=== PATIENT | female | born 1970 | race African-American/Black ===

== ENCOUNTER 2017-10-24 05:01 | Emergency (ER) | payer SELFPAY ==
[~2017-10-24] VITALS: Ht 165.1 cm; Wt 116.3 kg
[2017-10-24 06:42] LABS: ALANINE AMINOTRANSFERASE 67 U/L (12-78); ALBUMIN 3.2 g/dL (3.4-5.0); ANION GAP 10 mmol/L (5-15); CALCIUM 8.7 mg/dL (8.5-10.1); CHLORIDE 111 mmol/L (98-107); CREATININE 1.18 mg/dL (0.55-1.02)
[2017-10-24 06:46] LABS: ALKALINE PHOSPHATASE 94 U/L (45-117); BILIRUBIN,TOTAL 0.7 mg/dL (0.2-1.0); TOTAL PROTEIN 6.6 g/dL (6.4-8.2)
[2017-10-24 06:50] LABS: MD YES; MEAN CORPUSCULAR HEMOGLOBIN 18.7 pg (27.0-34.8); MEAN CORPUSCULAR VOLUME 63.3 fL (80-100); MEAN PLATELET VOLUME 9.8 fL (7.4-10.4); PLATELET COUNT 454 x10^3/uL (130-400); RED BLOOD COUNT 5.58 x10^6/uL (3.82-5.3); RED CELL DISTRIBUTION WIDTH 30.2 % (9.6-15.2)
[2017-10-24 06:54] LABS: MICROSCOPIC INDICATED
[2017-10-24 06:55] LABS: EOS#(MANUAL) 0.21 x10^3/uL (0.0-0.4); EOS% (MANUAL) 3 % (1-7); LYMPH#(MANUAL) 2.28 x10^3/uL (1-3.4); LYMPHS% (MANUAL) 33 % (22-44); MEAN CORPUSCULAR HGB CONC 29.6 g/dL (32.4-35.8); MONOS#(MANUAL) 0.28 x10^3/uL (0.3-2.7); MONOS% (MANUAL) 4 % (2-9); NRBC % (MANUAL) 1 % (0-1); SEG#(MANUAL) 4.14 x10^3/uL (1.8-6.8); SEGS% (MANUAL) 60 % (42-75)
[2017-10-24 06:57] LABS: ANISOCYTOSIS 2+; HYPOCHROMIA 2+; MICROCYTOSIS 2+; POLYCHROMASIA 1+
[2017-10-24 06:58] LABS: <PLATELET ESTIMATE> INCREASED; LARGE PLATELETS 1+; TARGET CELLS 1+
[2017-10-24 07:08] LABS: CULTURE INDICATED? YES
[2017-10-24 07:41] VITALS: BP 158/77
[2017-10-25] MEDS ORDERED: RANI150T23 PO (05:19)
== END 2017-10-24 09:43 ==
LOC: ED 06:25
DX: J45.909 Unspecified asthma, uncomplicated (principal); R06.02 Shortness of breath; N30.00 Acute cystitis without hematuria
CPT/HCPCS: 36415; 71046; 80053; 81001; 83690; 84703; 85025; 87086; 93005; 99285

== ENCOUNTER 2018-04-06 06:54 | Emergency (ER) | payer SELFPAY ==
[~2018-04-06] VITALS: Ht 165.1 cm; Wt 108.0 kg
[~2018-04-06 06:54] MED LIST: ASPI81TA45 PO; ATOR40TA78 PO; CARV6.2512 PO; FURO20TA3 PO; LISI5TAB7 PO; POTA20TA6 PO; RANI150T23 PO
[2018-04-06 07:05] VITALS: BP 149/100
[2018-04-06] MEDS ORDERED: KETOROLAC 30 MG/1 ML ONE (07:29)
[2018-04-06] MEDS ORDERED: KETOROLAC 30 MG/1 ML IM ONE (07:30)
--- NOTE | 2018-04-06 07:35 | NUR ---
Pt medicated as per emar for 8/10 ear pain.
--- NOTE | 2018-04-06 07:52 | NUR ---
Pt provided w/ rx assistance info. Patient given discharge instructions and they have confirmed that they understand the instructions. Patient ambulatory with steady gait.
== END 2018-04-06 07:53 | disposition home or self-care (01) ==
LOC: ED 07:25
DX: H60.502 Unspecified acute noninfective otitis externa, left ear (principal); I25.2 Old myocardial infarction; I11.0 Hypertensive heart disease with heart failure; I50.9 Heart failure, unspecified; F41.1 Generalized anxiety disorder; F31.9 Bipolar disorder, unspecified; J45.909 Unspecified asthma, uncomplicated; M06.9 Rheumatoid arthritis, unspecified; E11.9 Type 2 diabetes mellitus without complications
CPT/HCPCS: 96372; 99283; J1885

== ENCOUNTER 2018-04-18 16:53 | Emergency (ER) | payer SELFPAY ==
[~2018-04-18] VITALS: Ht 165.1 cm; Wt 105.0 kg
--- NOTE | 2018-04-18 17:22 | NUR ---
PT HER FOR SOB WITH ANXIETY EXPERINCED AT WORK. PT ON ARRIVAL VSS AND NADN. PT IS TEARFUL BUT EASILY CONSOLED. PT RESTING IN BED AND PO ATIVAN GIVEN.
[2018-04-18 18:47] VITALS: BP 114/77
== END 2018-04-18 18:49 | disposition home or self-care (01) ==
LOC: ED 17:27
DX: R07.2 Precordial pain (principal); I25.2 Old myocardial infarction; I50.9 Heart failure, unspecified; I11.0 Hypertensive heart disease with heart failure; E11.9 Type 2 diabetes mellitus without complications; M06.9 Rheumatoid arthritis, unspecified; Z88.0 Allergy status to penicillin
CPT/HCPCS: 71045; 93005; 99283

== ENCOUNTER 2018-08-24 05:46 | Emergency (ER) | payer SELFPAY ==
[~2018-08-24] VITALS: Ht 165.1 cm; Wt 110.0 kg
[2018-08-24] MEDS ORDERED: ADENOSINE 6 MG/2 ML ONE (05:49)
[2018-08-24] MEDS ORDERED: ADENOSINE 6 MG/2 ML IVPush ONE (06:00)
[2018-08-24] MEDS ORDERED: SODIUM CHLORIDE FLUSH 10ML SYR IVF ONE (06:00)
--- NOTE | 2018-08-24 06:00 | NUR ---
PT BIB [facility] WITH C/O SVT, PT PLACD ON ALL MONITORS AND CARDIO VERTED WITH ADENOSINE 6 MG IVP, PT CONVERTED MD HARRIS AT BEDSIDE
--- NOTE | 2018-08-24 06:17 | NUR ---
pt resting comfortably in nad states feels much better
--- NOTE | 2018-08-24 06:24 | NUR ---
at bs pt in nad
[2018-08-24 06:28] LABS: ANION GAP 10 mmol/L (5-15); CALCIUM 9.8 mg/dL (8.5-10.1); CHLORIDE 110 mmol/L (98-107)
[2018-08-24 06:32] LABS: ALANINE AMINOTRANSFERASE 64 U/L (12-78); ALKALINE PHOSPHATASE 99 U/L (45-117); BILIRUBIN,TOTAL 0.9 mg/dL (0.2-1.0); CREATININE 1.74 mg/dL (0.55-1.02); TOTAL PROTEIN 8.8 g/dL (6.4-8.2)
[2018-08-24 07:15] LABS: MEAN CORPUSCULAR HEMOGLOBIN 19.8 pg (27.0-34.8); MEAN CORPUSCULAR VOLUME 66.6 fL (80-100); MEAN PLATELET VOLUME 10.5 fL (7.4-10.4); PLATELET COUNT 325 x10^3/uL (130-400); RED BLOOD COUNT 7.12 x10^6/uL (3.82-5.3); RED CELL DISTRIBUTION WIDTH 23.6 % (9.6-15.2)
[2018-08-24 07:19] LABS: MD YES; MEAN CORPUSCULAR HGB CONC 29.8 g/dL (32.4-35.8)
[2018-08-24 07:21] LABS: EOS#(MANUAL) 0.21 x10^3/uL (0.0-0.4); EOS% (MANUAL) 3 % (1-7); LYMPH#(MANUAL) 2.49 x10^3/uL (1-3.4); LYMPHS% (MANUAL) 35 % (22-44); MONOS#(MANUAL) 0.43 x10^3/uL (0.3-2.7); MONOS% (MANUAL) 6 % (2-9); SEG#(MANUAL) 3.98 x10^3/uL (1.8-6.8); SEGS% (MANUAL) 56 % (42-75)
[2018-08-24 07:22] LABS: ANISOCYTOSIS 2+; HYPOCHROMIA 2+; MICROCYTOSIS 2+; POLYCHROMASIA 1+; TARGET CELLS 1+
[2018-08-24 07:23] LABS: <PLATELET ESTIMATE> ADEQUATE; LARGE PLATELETS 1+
[2018-08-24 07:32] VITALS: BP 103/71
== END 2018-08-24 09:03 | disposition home or self-care (01) ==
LOC: ED 08:45
DX: I47.1 Supraventricular tachycardia (principal); I10 Essential (primary) hypertension; Z87.891 Personal history of nicotine dependence
CPT/HCPCS: 36415; 71045; 80053; 85025; 93005; 96374; 99291; J0153

== ENCOUNTER 2018-12-14 01:21 | Inpatient (IN) | payer MEDICAID ==
[~2018-12-14] VITALS: Ht 165.1 cm; Wt 116.9 kg
[2018-12-14] VITALS (7 sets, daily range): BP systolic 87–116; BP diastolic 61–91
[~2018-12-14 01:21] MED LIST changes: +RANI-467 PO; -RANI150T23 PO
[2018-12-14] MEDS ORDERED: ASPIRIN 81 MG TABLET CHEW PO ONE (01:30)
[2018-12-14] MEDS ORDERED: SODIUM CHLORIDE 0.9% 1,000ML IVBOLUS ONE ×2 (01:30)
[2018-12-14] MEDS ORDERED: SODIUM CHLORIDE FLUSH 10ML SYR IVF ONE (01:30)
--- NOTE | 2018-12-14 01:39 | NUR ---
pt bib [facility] with c/o syncopal episode lasting less than a min s/p smoking marajuana, pt a and o x 4 in nadc/o being hot, pt cool and clammy, pt states that she is going through menopause
[2018-12-14] MEDS ORDERED: ASPIRIN 81 MG TABLET CHEW ONE (01:48)
[2018-12-14 02:06] LABS: ALANINE AMINOTRANSFERASE 56 U/L (12-78); ALBUMIN 3.2 g/dL (3.4-5.0); ANION GAP 8 mmol/L (5-15); CHLORIDE 110 mmol/L (98-107); CREATININE 1.87 mg/dL (0.55-1.02)
[2018-12-14 02:10] LABS: ALKALINE PHOSPHATASE 120 U/L (45-117); BILIRUBIN,TOTAL 0.6 mg/dL (0.2-1.0); TOTAL PROTEIN 7.1 g/dL (6.4-8.2); TROPONIN I < 0.015 ng/mL (0.000-0.045)
--- NOTE | 2018-12-14 02:23 | NUR ---
ptresting in nasd at this time
[2018-12-14 02:25] LABS: MEAN CORPUSCULAR HEMOGLOBIN 21.5 pg (27.0-34.8); MEAN CORPUSCULAR HGB CONC 30.2 g/dL (32.4-35.8); MEAN CORPUSCULAR VOLUME 71.3 fL (80-100); MEAN PLATELET VOLUME 11.9 fL (7.4-10.4); PLATELET COUNT 220 x10^3/uL (130-400); RED BLOOD COUNT 6.36 x10^6/uL (3.82-5.3); RED CELL DISTRIBUTION WIDTH 22.1 % (9.6-15.2)
[2018-12-14 02:26] LABS: BASOS#(MANUAL) 0.11 x10^3/uL (0-0.1); BASOS% (MANUAL) 1 % (0-1); EOS#(MANUAL) 0.11 x10^3/uL (0.0-0.4); EOS% (MANUAL) 1 % (1-7); LYMPH#(MANUAL) 3.68 x10^3/uL (1-3.4); LYMPHS% (MANUAL) 35 % (22-44); MD YES; MONOS#(MANUAL) 0.21 x10^3/uL (0.3-2.7); MONOS% (MANUAL) 2 % (2-9); NRBC % (MANUAL) 2 % (0-1); REACTIVE LYMPHS # (MANUAL) 0.21 x10^3/uL (0-0); REACTIVE LYMPHS % (MANUAL) 2 % (0-0); SEGS% (MANUAL) 59 % (42-75)
[2018-12-14 02:27] LABS: <PLATELET ESTIMATE> ADEQUATE
[2018-12-14 02:28] LABS: HYPOCHROMIA 1+; POLYCHROMASIA 1+; TARGET CELLS 1+
[2018-12-14 02:29] LABS: ANISOCYTOSIS 1+; LARGE PLATELETS 1+; MICROCYTOSIS 2+
[2018-12-14 02:30] LABS: OVALOCYTES 1+
[2018-12-14] MEDS ORDERED: FUROSEMIDE 40 MG/4 ML ONE (03:06)
[2018-12-14] MEDS ORDERED: CARV3.12 PO (03:23)
[2018-12-14] MEDS ORDERED: LISI-424 PO (03:24)
[2018-12-14] MEDS ORDERED: RISP1SOL5 PO (03:25)
[2018-12-14] MEDS ORDERED: FURO-93 PO (03:26)
[2018-12-14] MEDS ORDERED: POTA99TA24 PO (03:26)
[2018-12-14] MEDS ORDERED: ASPI-496 PO (03:27)
--- NOTE | 2018-12-14 03:28 | NUR ---
awaiting admit bed
[2018-12-14] MEDS ORDERED: FUROSEMIDE 40 MG/4 ML IV ONE (03:30)
[2018-12-14] MEDS ORDERED: SODIUM CHLORIDE FLUSH 10ML SYR IVF PRN (03:30)
--- NOTE | 2018-12-14 03:34 | NUR ---
report to demetrice pt to room with tech
[2018-12-14] MEDS ORDERED: ATOR20TA86 PO (04:04)
[2018-12-14 07:25] LABS: AMPHETAMINE SCREEN, URINE Positive (Negative); BARBITURATE SCREEN, URINE Negative (Negative); BENZODIAZEPINE SCREEN, URINE Negative (Negative); CANNABINOID SCREEN, URINE Negative (Negative); COCAINE SCREEN, URINE Negative (Negative); METHADONE SCREEN, URINE Negative (Negative); OPIATE SCREEN, URINE Negative (Negative)
[2018-12-14] MEDS ORDERED: FUROSEMIDE 20 MG/2 ML IV ONE (08:00)
[2018-12-14] MEDS ORDERED: ONDANSETRON 2MG/ML, 2ML IVPush PRN (08:30)
[2018-12-14] MEDS ORDERED: PROMETHAZINE 25 MG/ML, 1ML IM PRN (08:30)
[2018-12-14] MEDS ORDERED: LABETALOL 5MG/ML, 20ML IVPush PRN (08:30)
[2018-12-14] MEDS ORDERED: ALBUTEROL SULFATE 2.5 MG/3 ML ONE (09:00)
[2018-12-14] MEDS ORDERED: POTASSIUM CHLORIDE 20 MEQ TAB.ER.PRT PO ONE (09:00)
[2018-12-14 09:16] LABS: CHOL/HDL RATIO 2.8; LDL/HDL RATIO 1.2 (0.5-3.0)
[2018-12-14] MEDS: ATORVASTATIN 20 MG TABLET PO SCH ×2 (09:41→21:06)
[2018-12-14] MEDS: CARVEDILOL 3.125 MG TABLET PO SCH (09:42)
[2018-12-14] MEDS: LISINOPRIL 5 MG TABLET PO SCH (09:44)
[2018-12-14] MEDS: ASPIRIN 81 MG TABLET EC PO SCH (09:46)
[2018-12-14] MEDS: PANTOPROZOLE 40MG TABLET PO SCH (09:53)
[2018-12-14] MEDS: ALBUTEROL SULFATE 2.5 MG/3 ML NPPB SCH ×3 (10:09→20:00)
[2018-12-14] MEDS ORDERED: ALBUTEROL SULFATE 2.5 MG/3 ML NPPB PRN (10:30)
[2018-12-14] MEDS: INSULIN LISPRO 100 UNITS/ML, PEN SQ-INSULIN SCH ×3 (11:42→21:00)
[2018-12-14] MEDS: HEPARIN 5,000 UNITS/ML, 1ML SQ SCH ×2 (12:17→19:52)
[2018-12-14 13:18] LABS: HEMOGLOBIN A1C 6.6 % (4.2-6.3)
[2018-12-14] MEDS ORDERED: FUROSEMIDE 20 MG TABLET PO SCH (17:00)
[2018-12-15] VITALS (10 sets, daily range): BP systolic 0–122; BP diastolic 0–91
[2018-12-15] MEDS: HEPARIN 5,000 UNITS/ML, 1ML SQ SCH ×3 (04:44→20:55)
[2018-12-15 05:56] LABS: ANION GAP 6 mmol/L (5-15); CALCIUM 8.7 mg/dL (8.5-10.1); CHLORIDE 104 mmol/L (98-107)
[2018-12-15 05:58] LABS: CREATININE 1.54 mg/dL (0.55-1.02)
[2018-12-15 06:16] LABS: BASOPHILS # (AUTO) 0.01 x10^3/uL (0-0.1); BASOPHILS % (AUTO) 0 % (0-1); EOSINOPHILS # (AUTO) 0.18 x10^3/uL (0-0.4); EOSINOPHILS % (AUTO) 2 % (1-7); LYMPHOCYTES # (AUTO) 2.59 x10^3/uL (1-3.4); LYMPHOCYTES % (AUTO) 33 % (22-44); MD MORPH REVIEW ONLY; MEAN CORPUSCULAR HEMOGLOBIN 21.7 pg (27.0-34.8); MEAN CORPUSCULAR HGB CONC 30.2 g/dL (32.4-35.8); MEAN CORPUSCULAR VOLUME 72.1 fL (80-100); MEAN PLATELET VOLUME 12.4 fL (7.4-10.4); MONOCYTES # (AUTO) 0.56 x10^3/uL (0.2-0.8); MONOCYTES % (AUTO) 7 % (2-9); NEUTROPHILS # (AUTO) 4.43 x10^3/uL (1.8-6.8); NEUTROPHILS % (AUTO) 57 % (42-75); PLATELET COUNT 219 x10^3/uL (130-400); RED BLOOD COUNT 6.24 x10^6/uL (3.82-5.3); RED CELL DISTRIBUTION WIDTH 21.7 % (9.6-15.2)
[2018-12-15 06:17] LABS: ANISOCYTOSIS 1+; HYPOCHROMIA 1+; MICROCYTOSIS 1+
[2018-12-15 06:18] LABS: TARGET CELLS 1+
[2018-12-15 06:19] LABS: <PLATELET ESTIMATE> ADEQUATE; GIANT PLATELETS 1+; LARGE PLATELETS 1+
[2018-12-15 06:20] LABS: POLYCHROMASIA 1+
[2018-12-15] MEDS: INSULIN LISPRO 100 UNITS/ML, PEN SQ-INSULIN SCH ×4 (07:00→21:00)
[2018-12-15] MEDS: ALBUTEROL SULFATE 2.5 MG/3 ML NPPB SCH ×4 (07:06→19:36)
[2018-12-15] MEDS: ASPIRIN 81 MG TABLET EC PO SCH (07:59)
[2018-12-15] MEDS: PANTOPROZOLE 40MG TABLET PO SCH (07:59)
[2018-12-15] MEDS: LISINOPRIL 5 MG TABLET PO SCH ×2 (08:13→09:00)
[2018-12-15] MEDS: CARVEDILOL 3.125 MG TABLET PO SCH (08:13)
[2018-12-15] MEDS ORDERED: CARVEDILOL 3.125 MG TABLET PO SCH (09:00)
[2018-12-15] MEDS: LACTOBACILLUS CHEW TABLET PO SCH ×3 (09:34→20:55)
[2018-12-15] MEDS: ATORVASTATIN 20 MG TABLET PO SCH ×2 (09:34→20:55)
[2018-12-15] MEDS: FERROUS SULFATE 325 MG TABLET PO SCH (09:34)
[2018-12-16] VITALS (8 sets, daily range): BP systolic 95–140; BP diastolic 66–108
[2018-12-16] MEDS: HEPARIN 5,000 UNITS/ML, 1ML SQ SCH ×3 (04:29→20:26)
[2018-12-16] MEDS: ALBUTEROL SULFATE 2.5 MG/3 ML NPPB SCH ×4 (06:30→20:00)
[2018-12-16] MEDS: INSULIN LISPRO 100 UNITS/ML, PEN SQ-INSULIN SCH ×4 (07:00→19:45)
[2018-12-16] MEDS: LISINOPRIL 5 MG TABLET PO SCH (09:00)
[2018-12-16] MEDS: PANTOPROZOLE 40MG TABLET PO SCH (09:28)
[2018-12-16] MEDS: LACTOBACILLUS CHEW TABLET PO SCH ×3 (09:29→20:25)
[2018-12-16] MEDS: ATORVASTATIN 20 MG TABLET PO SCH ×2 (09:31→20:25)
[2018-12-16] MEDS: ASPIRIN 81 MG TABLET EC PO SCH (09:33)
[2018-12-16] MEDS ORDERED: CARVEDILOL 3.125 MG TABLET PO SCH (21:00)
[2018-12-17 00:32] VITALS: BP 114/78
[2018-12-17] MEDS ORDERED: RISP-2 PO (02:35)
[2018-12-17] MEDS: HEPARIN 5,000 UNITS/ML, 1ML SQ SCH ×2 (04:21→12:14)
[2018-12-17] MEDS: ALBUTEROL SULFATE 2.5 MG/3 ML NPPB SCH (06:27)
[2018-12-17 06:42] VITALS: BP 88/50
[2018-12-17] MEDS: LISINOPRIL 5 MG TABLET PO SCH (09:00)
[2018-12-17 09:07] VITALS: BP 133/86
[2018-12-17] MEDS: INSULIN LISPRO 100 UNITS/ML, PEN SQ-INSULIN SCH ×2 (09:07→11:24)
[2018-12-17 09:08] VITALS: BP 136/88
[2018-12-17 09:09] VITALS: BP 126/86
[2018-12-17] MEDS: LACTOBACILLUS CHEW TABLET PO SCH (09:16)
[2018-12-17] MEDS: PANTOPROZOLE 40MG TABLET PO SCH (09:16)
[2018-12-17] MEDS: ATORVASTATIN 20 MG TABLET PO SCH (09:16)
[2018-12-17] MEDS: ASPIRIN 81 MG TABLET EC PO SCH (09:17)
[2018-12-17] MEDS: FERROUS SULFATE 325 MG TABLET PO SCH (09:17)
[2018-12-17 12:09] VITALS: BP 122/69
[2018-12-17] MEDS ORDERED: ACID1TAB7 PO (15:05)
[2018-12-17] MEDS ORDERED: FERR-51 PO (15:05)
[2018-12-17] MEDS ORDERED: METO25TA91 PO (15:05)
[2018-12-17] MEDS ORDERED: INSU100I11 SQ-INSULIN (15:05)
[2018-12-17] MEDS ORDERED: LISI5TAB7 PO (15:05)
[2018-12-17] MEDS ORDERED: PANT40TA5 PO (15:05)
[2018-12-17] MEDS ORDERED: METOPROLOL SUCCINATE 25 MG TAB.ER.24H PO SCH (21:00)
[2018-12-17] MEDS ORDERED: RISPERIDONE 1 MG TAB.RAPDIS PO SCH (21:00)
== END 2018-12-17 17:05 | DRG 291 ==
LOC: ED 03:05 → EDIP 03:11 → 5SO 03:54 → 4WST 14:59
PROVIDERS: ADMIT Family Medicine; ATTEND Internal Medicine
DX: I13.0 Hypertensive heart and chronic kidney disease with heart failure and stage 1 through stage 4 chronic kidney disease, or unspecified chronic kidney disease (principal); I50.43 Acute on chronic combined systolic (congestive) and diastolic (congestive) heart failure; J96.01 Acute respiratory failure with hypoxia; Z68.41 Body mass index [BMI] 40.0-44.9, adult; N17.9 Acute kidney failure, unspecified; D50.9 Iron deficiency anemia, unspecified; I42.8 Other cardiomyopathies; E11.22 Type 2 diabetes mellitus with diabetic chronic kidney disease; E66.01 Morbid (severe) obesity due to excess calories; F12.10 Cannabis abuse, uncomplicated; F31.9 Bipolar disorder, unspecified; G47.00 Insomnia, unspecified; G47.33 Obstructive sleep apnea (adult) (pediatric); G56.00 Carpal tunnel syndrome, unspecified upper limb; H53.2 Diplopia; I25.10 Atherosclerotic heart disease of native coronary artery without angina pectoris; J45.909 Unspecified asthma, uncomplicated; M06.9 Rheumatoid arthritis, unspecified; M50.30 Other cervical disc degeneration, unspecified cervical region; M79.7 Fibromyalgia; N18.3 Chronic kidney disease, stage 3 (moderate); W18.30XA Fall on same level, unspecified, initial encounter; F14.10 Cocaine abuse, uncomplicated; M19.90 Unspecified osteoarthritis, unspecified site; I95.9 Hypotension, unspecified; R55 Syncope and collapse; F19.10 Other psychoactive substance abuse, uncomplicated; I25.2 Old myocardial infarction; Z80.1 Family history of malignant neoplasm of trachea, bronchus and lung; Z86.73 Personal history of transient ischemic attack (TIA), and cerebral infarction without residual deficits; Z88.0 Allergy status to penicillin
CPT/HCPCS: 36415; 96374; 99285; J7613; 70450; 71045; 80048; 80053; 80061; 80307; 82728; 82962; 83036; 83540; 83550; 83735; 83880; 84100; 84443; 84466; 84484; 85025; 93005; 93306; 94640; G0378; J1644; J1940; J7030

== ENCOUNTER 2019-01-06 20:26 | Emergency (ER) | payer MEDICAID ==
[~2019-01-06] VITALS: Ht 165.1 cm; Wt 118.5 kg
[~2019-01-06 20:26] MED LIST changes: +ACID1TAB7 PO; +ASPI-496 PO; +ATOR20TA86 PO; +CARV3.12 PO; +FERR-51 PO; +FURO-93 PO; +INSU100I11 SQ-INSULIN; +LISI-424 PO; +METO25TA91 PO; +PANT40TA5 PO; +POTA99TA24 PO; +RISP-2 PO; +RISP1SOL5 PO
[2019-01-06 20:28] VITALS: BP 130/62
[2019-01-06 20:56] LABS: CULTURE INDICATED? YES; MICROSCOPIC INDICATED
--- NOTE | 2019-01-06 21:07 | NUR ---
PT PLACED IN ROOM AND AND AWAITING ERP AND ORDERS.
[2019-01-06] MEDS ORDERED: ONDANSETRON 2MG/ML, 2ML IVPush ONE (21:30)
[2019-01-06 21:48] LABS: ALANINE AMINOTRANSFERASE 31 U/L (12-78); ALBUMIN 3.4 g/dL (3.4-5.0); ANION GAP 5 mmol/L (5-15); CHLORIDE 111 mmol/L (98-107); CREATININE 1.35 mg/dL (0.55-1.02)
[2019-01-06 21:50] LABS: MEAN CORPUSCULAR HEMOGLOBIN 22.5 pg (27.0-34.8); MEAN CORPUSCULAR HGB CONC 30.8 g/dL (32.4-35.8); MEAN CORPUSCULAR VOLUME 73.2 fL (80-100); MEAN PLATELET VOLUME 11.9 fL (7.4-10.4); PLATELET COUNT 220 x10^3/uL (130-400); RED CELL DISTRIBUTION WIDTH 20.5 % (9.6-15.2)
[2019-01-06 21:51] LABS: ALKALINE PHOSPHATASE 102 U/L (45-117); BILIRUBIN,TOTAL 0.4 mg/dL (0.2-1.0); TOTAL PROTEIN 7.3 g/dL (6.4-8.2)
[2019-01-06 22:08] LABS: MD YES
[2019-01-06 22:13] LABS: BASOS#(MANUAL) 0.08 x10^3/uL (0-0.1); BASOS% (MANUAL) 1 % (0-1); EOS% (MANUAL) 4 % (1-7); LYMPH#(MANUAL) 2.43 x10^3/uL (1-3.4); LYMPHS% (MANUAL) 32 % (22-44); MONOS#(MANUAL) 0.61 x10^3/uL (0.3-2.7); MONOS% (MANUAL) 8 % (2-9); REACTIVE LYMPHS # (MANUAL) 0.15 x10^3/uL (0-0); REACTIVE LYMPHS % (MANUAL) 2 % (0-0); SEG#(MANUAL) 4.03 x10^3/uL (1.8-6.8); SEGS% (MANUAL) 53 % (42-75)
[2019-01-06 22:14] LABS: <PLATELET ESTIMATE> ADEQUATE; ANISOCYTOSIS 1+; HYPOCHROMIA 1+; MICROCYTOSIS 1+; OVALOCYTES 1+; POLYCHROMASIA 1+; TARGET CELLS 1+
[2019-01-06 22:15] LABS: GIANT PLATELETS 1+; LARGE PLATELETS 1+
[2019-01-06] MEDS ORDERED: METHOCARBAMOL 750 MG TABLET ONE (22:29)
[2019-01-06] MEDS ORDERED: OXYcodone/APAP 5/325MG TABLET ONE (22:29)
--- NOTE | 2019-01-06 22:36 | NUR ---
PT MEDICATED ORDERED BY ERP. PT UP FOR RECHECK
[2019-01-06] MEDS: MORPHINE SULFATE 4 MG/ML, 1ML IVPush PRN (22:58)
[2019-01-06] MEDS ORDERED: METHOCARBAMOL 750 MG TABLET PO ONE (23:30)
[2019-01-06] MEDS ORDERED: OXYcodone/APAP 5/325MG TABLET PO ONE (23:30)
== END 2019-01-06 23:15 | disposition home or self-care (01) ==
LOC: ED 22:08
DX: S39.012A Strain of muscle, fascia and tendon of lower back, initial encounter (principal); I25.2 Old myocardial infarction; I50.9 Heart failure, unspecified; I13.0 Hypertensive heart and chronic kidney disease with heart failure and stage 1 through stage 4 chronic kidney disease, or unspecified chronic kidney disease; E11.22 Type 2 diabetes mellitus with diabetic chronic kidney disease; N18.9 Chronic kidney disease, unspecified; J45.909 Unspecified asthma, uncomplicated; Z87.891 Personal history of nicotine dependence; Z72.89 Other problems related to lifestyle; Z86.73 Personal history of transient ischemic attack (TIA), and cerebral infarction without residual deficits
CPT/HCPCS: 36415; 74176; 80053; 81001; 83690; 85025; 87086; 99284

== ENCOUNTER 2019-03-08 16:20 | Emergency (ER) | payer MEDICAID ==
[~2019-03-08] VITALS: Ht 167.6 cm; Wt 116.0 kg
[2019-03-08 17:21] LABS: ALANINE AMINOTRANSFERASE 18 U/L (12-78); ALBUMIN 3.3 g/dL (3.4-5.0); ANION GAP 7 mmol/L (5-15); CALCIUM 8.8 mg/dL (8.5-10.1); CHLORIDE 110 mmol/L (98-107); CREATININE 1.71 mg/dL (0.55-1.02)
[2019-03-08 17:22] LABS: MEAN CORPUSCULAR HEMOGLOBIN 22.5 pg (27.0-34.8); MEAN CORPUSCULAR HGB CONC 30.6 g/dL (32.4-35.8); MEAN CORPUSCULAR VOLUME 73.7 fL (80-100); MEAN PLATELET VOLUME 10.9 fL (7.4-10.4); PLATELET COUNT 241 x10^3/uL (130-400); RED CELL DISTRIBUTION WIDTH 17.9 % (9.6-15.2)
[2019-03-08 17:26] LABS: ALKALINE PHOSPHATASE 84 U/L (45-117); BILIRUBIN,TOTAL 0.6 mg/dL (0.2-1.0); TOTAL PROTEIN 7.1 g/dL (6.4-8.2); TROPONIN I < 0.015 ng/mL (0.000-0.045)
[2019-03-08 18:07] LABS: MD YES
[2019-03-08 18:10] LABS: BASOS#(MANUAL) 0.07 x10^3/uL (0-0.1); BASOS% (MANUAL) 1 % (0-1); EOS#(MANUAL) 0.14 x10^3/uL (0.0-0.4); EOS% (MANUAL) 2 % (1-7); LYMPH#(MANUAL) 2.72 x10^3/uL (1-3.4); LYMPHS% (MANUAL) 40 % (22-44); MONOS#(MANUAL) 0.61 x10^3/uL (0.3-2.7); MONOS% (MANUAL) 9 % (2-9); REACTIVE LYMPHS # (MANUAL) 0.07 x10^3/uL (0-0); REACTIVE LYMPHS % (MANUAL) 1 % (0-0); SEGS% (MANUAL) 47 % (42-75)
[2019-03-08 18:11] LABS: ANISOCYTOSIS 1+; MICROCYTOSIS 1+
[2019-03-08 18:12] LABS: OVALOCYTES 1+; POLYCHROMASIA 1+
[2019-03-08 18:13] LABS: TARGET CELLS 1+
[2019-03-08 18:14] LABS: <PLATELET ESTIMATE> ADEQUATE; LARGE PLATELETS 1+
--- NOTE | 2019-03-08 19:00 | NUR ---
48 Y/O FEMALE PRESENTS TO ED WITH C/O LIGHT HEADED AND DIZZINESS. PER PT "I'VE BEEN LIGHT HEADED AND DIZZINESS FOR THE LAST WEEK WHEN I STARTED A NEW MEDICATION. IT HAPPENED BEFORE BUT WENT A WAY. THE NEW MEDICATION IS SPIRONLACTONE. I CALLED MY DR AND HE TOLD ME TO COME HERE. I DIDN'T TAKE ANY OF MY MEDS TODAY." NO C/O TRAUMA, SYNCOPE, CP, SOB, N/V/D. PT PLACED ON CONT PULSE OX,NIBP.
--- NOTE | 2019-03-08 19:00 | NUR ---
PT TO ROOM FROM LOBBY
--- NOTE | 2019-03-08 19:17 | NUR ---
REPORT FROM HERB OVERTON
[2019-03-08 19:47] VITALS: BP 120/79
--- NOTE | 2019-03-08 19:50 | NUR ---
SUPINE TO SITTING ORTHOS NEGATIVE WO S/S OF DIZZINESS. UPON STANDING, PT STATED SHE "FELT FINE" THEN BECAME DIZZY AND SAT DOWN. PWD THROUGHOUT, TALKATIVE THROUGHOUT. ERP AWARE. D/T REPORTED DIZZINESS UPON STANDING, STRAIGHT CATH COMPLETED VS CLEAN CATCH. ERP AWARE. UA COLLECTED AND SENT. BP/SPO2/ECG MONITORING IN PLACE. NSR ON MONITOR.
[2019-03-08 20:11] LABS: MICROSCOPIC NOT IND
[2019-03-08 20:35] LABS: CULTURE INDICATED? NO
--- NOTE | 2019-03-08 20:58 | NUR ---
DC EDUCATION PROVIDED, PT DEMONSTRATES UNDERSTANDING. PT AMBULATED STEADILY WO CO OF DIZZINESS/WEAKNESS TO DC WITH RN
== END 2019-03-08 21:26 | disposition home or self-care (01) ==
LOC: MERGE 16:20 → ED 21:03
DX: E86.0 Dehydration (principal); R55 Syncope and collapse; I13.0 Hypertensive heart and chronic kidney disease with heart failure and stage 1 through stage 4 chronic kidney disease, or unspecified chronic kidney disease; E11.22 Type 2 diabetes mellitus with diabetic chronic kidney disease; N18.2 Chronic kidney disease, stage 2 (mild); I50.9 Heart failure, unspecified; I25.2 Old myocardial infarction; M79.7 Fibromyalgia; Z86.73 Personal history of transient ischemic attack (TIA), and cerebral infarction without residual deficits
CPT/HCPCS: 36415; 71045; 80053; 81003; 83880; 84484; 84703; 85025; 93005; 99284

== ENCOUNTER 2019-10-03 07:58 | Emergency (ER) | payer MEDICAID ==
[~2019-10-03] VITALS: Ht 165.1 cm; Wt 130.3 kg
--- NOTE | 2019-10-03 08:30 | NUR ---
THIS IS A 49 O F W/ C/O CONSTANT CP AND SOB X1 WEEK. PT REPORTS IT FEELS SIMILAR TO A PANIC ATTACK BUT SHE HAS NOT BEEN ABLE TO "CALM MY NERVES". PT RESTING ON trueEX W/ CALL LIGHT IN REACH. CONNECTED TO ALL MONITORING, ALMA ATKINS.
[2019-10-03 09:22] LABS: ALANINE AMINOTRANSFERASE 194 U/L (12-78); ALBUMIN 3.3 g/dL (3.4-5.0); ANION GAP 5 mmol/L (5-15); CALCIUM 8.5 mg/dL (8.5-10.1); CHLORIDE 115 mmol/L (98-107); CREATININE 1.43 mg/dL (0.55-1.02)
[2019-10-03 09:26] LABS: ALKALINE PHOSPHATASE 171 U/L (45-117); BILIRUBIN,TOTAL 0.8 mg/dL (0.2-1.0); TOTAL PROTEIN 6.9 g/dL (6.4-8.2)
[2019-10-03 09:41] LABS: MEAN CORPUSCULAR HEMOGLOBIN 22.8 pg (27.0-34.8); MEAN CORPUSCULAR HGB CONC 30.8 g/dL (32.4-35.8); MEAN CORPUSCULAR VOLUME 74.2 fL (80-100); MEAN PLATELET VOLUME 10.2 fL (7.4-10.4); PLATELET COUNT 221 x10^3/uL (130-400); RED BLOOD COUNT 6.16 x10^6/uL (3.82-5.3); RED CELL DISTRIBUTION WIDTH 18.1 % (9.6-15.2)
[2019-10-03 09:45] LABS: MD YES
[2019-10-03 09:46] LABS: BASOS#(MANUAL) 0.08 x10^3/uL (0-0.1); BASOS% (MANUAL) 1 % (0-1); EOS#(MANUAL) 0.74 x10^3/uL (0.0-0.4); EOS% (MANUAL) 9 % (1-7); LYMPH#(MANUAL) 3.53 x10^3/uL (1-3.4); LYMPHS% (MANUAL) 43 % (22-44); MONOS#(MANUAL) 0.41 x10^3/uL (0.3-2.7); MONOS% (MANUAL) 5 % (2-9); NRBC % (MANUAL) 3 % (0-1); SEG#(MANUAL) 3.44 x10^3/uL (1.8-6.8); SEGS% (MANUAL) 42 % (42-75)
[2019-10-03 09:47] LABS: ANISOCYTOSIS 1+; HYPOCHROMIA 1+; MICROCYTOSIS 1+; TARGET CELLS 1+
[2019-10-03 09:48] LABS: <PLATELET ESTIMATE> ADEQUATE; <PLT MORPHOLOGY> NORMAL PLT MORPH
[2019-10-03 10:20] VITALS: BP 132/90
--- NOTE | 2019-10-03 10:45 | NUR ---
Patient given discharge instructions and they have confirmed that they understand the instructions. Patient ambulatory with steady gait.
== END 2019-10-03 10:46 | disposition home or self-care (01) ==
LOC: ED 09:04
DX: R06.00 Dyspnea, unspecified (principal); I11.0 Hypertensive heart disease with heart failure; I50.9 Heart failure, unspecified; I44.4 Left anterior fascicular block; R07.9 Chest pain, unspecified; F41.9 Anxiety disorder, unspecified; I25.2 Old myocardial infarction; E11.9 Type 2 diabetes mellitus without complications; M79.7 Fibromyalgia; J45.909 Unspecified asthma, uncomplicated; Z86.73 Personal history of transient ischemic attack (TIA), and cerebral infarction without residual deficits
CPT/HCPCS: 36415; 71045; 80053; 83880; 84703; 85025; 93005; 99285

== ENCOUNTER 2019-10-30 03:08 | Inpatient (IN) | payer MEDICAID ==
[~2019-10-30] VITALS: Ht 149.9 cm; Wt 131.2 kg
[~2019-10-30 03:08] MED LIST changes: -PANT40TA5 PO; +PANT40TA6 PO
[2019-10-30] MEDS ORDERED: DEXTROSE 50%, 50ML SYRINGE IVPush ONE (03:30)
[2019-10-30 03:55] LABS: ALBUMIN 2.7 g/dL (3.4-5.0); ANION GAP 10 mmol/L (5-15); CALCIUM 8.1 mg/dL (8.5-10.1); CHLORIDE 99 mmol/L (98-107)
[2019-10-30 04:01] LABS: ALANINE AMINOTRANSFERASE 42 U/L (12-78); ALKALINE PHOSPHATASE 70 U/L (45-117); BILIRUBIN,TOTAL 0.7 mg/dL (0.2-1.0); CREATININE 1.97 mg/dL (0.55-1.02); TOTAL PROTEIN 6.9 g/dL (6.4-8.2); TROPONIN I < 0.015 ng/mL (0.000-0.045)
--- NOTE | 2019-10-30 04:01 | NUR ---
Patient BIB [facility] with hypoglycemia. Per EMS, they were called to her house for patient sliding off bed and unable to get up. On their arrival, patient was unusally weak. BS was 25. Patient remained AAOx4. Juice provided; BS increased to 50 but decreased back down to 35. 60g oral glucose given. EMS was unable to initiate an IV successfully. Patient is c/o being cold and weak. Patient states she normally manages her BS well. Respirations even and unlabored. US IV to be placed; peanut butter sandwich provided in the meantime; BS 108.
[2019-10-30] MEDS ORDERED: CEFTRIAXONE PMX 1GM/50ML 50 ML IVPB ONE (04:30)
[2019-10-30] MEDS ORDERED: AZITHROMYCIN 500 MG in SODIUM CHLORIDE 0.9% 250 ML IVPB ONE (04:30)
[2019-10-30 04:56] LABS: BASOPHILS # (AUTO) 0.01 x10^3/uL (0-0.1); BASOPHILS % (AUTO) 0 % (0-1); EOSINOPHILS # (AUTO) 0.01 x10^3/uL (0-0.4); EOSINOPHILS % (AUTO) 0 % (1-7); LYMPHOCYTES % (AUTO) 8 % (22-44); MD SCAN; MEAN CORPUSCULAR HEMOGLOBIN 22.5 pg (27.0-34.8); MEAN CORPUSCULAR HGB CONC 31.1 g/dL (32.4-35.8); MONOCYTES # (AUTO) 0.44 x10^3/uL (0.2-0.8); MONOCYTES % (AUTO) 6 % (2-9); NEUTROPHILS % (AUTO) 86 % (42-75); PLATELET COUNT 129 x10^3/uL (130-400); RED BLOOD COUNT 6.54 x10^6/uL (3.82-5.3); RED CELL DISTRIBUTION WIDTH 15.9 % (9.6-15.2)
[2019-10-30] MEDS ORDERED: LIDOCAINE-MPF 1%, 5ML ONE ×2 (05:07→05:42)
--- NOTE | 2019-10-30 05:19 | NUR ---
Still unable to obtain US IV. [place], ERP to place central line.
--- NOTE | 2019-10-30 06:04 | NUR ---
Assisted ERP with femoral central line insertion.
[2019-10-30] MEDS ORDERED: CEFTRIAXONE PMX 1GM/50ML 50 ML ONE (06:38)
--- NOTE | 2019-10-30 06:45 | NUR ---
[place] catheter inserted with no incidents. Urine collected and sent to lab. Report given to HERB Tinajero. Patient to be transferred to room 420.
[2019-10-30] MEDS ORDERED: SODIUM CHLORIDE 0.9% 1,000 ML IV ONE (06:46)
--- NOTE | 2019-10-30 06:50 | NUR ---
One set of blood cultures drawn; multiple attempts for second set with no success. Patient refusing to cooperate with attempts. Per Opal, ERP, antibiotics to be given without second set of blood cultures.
[2019-10-30 07:32] LABS: MICROSCOPIC INDICATED
[2019-10-30] MEDS ORDERED: HYDR-826 PO (07:48)
[2019-10-30] MEDS ORDERED: GABA-826 PO (07:48)
[2019-10-30] MEDS ORDERED: SPIR25TA5 PO (07:48)
[2019-10-30] MEDS ORDERED: CARV12.52 PO (07:48)
[2019-10-30] MEDS ORDERED: GLYB5TAB3 PO (07:48)
[2019-10-30] MEDS ORDERED: ATOR40TA78 PO (07:48)
[2019-10-30 08:04] VITALS: BP 90/67
[2019-10-30] MEDS ORDERED: ONDANSETRON 2MG/ML, 2ML IVPush PRN (08:30)
[2019-10-30] MEDS ORDERED: ONDANSETRON ODT 4 MG PO PRN (08:30)
[2019-10-30] MEDS ORDERED: MELATONIN 5 MG TABLET PO PRN (08:30)
[2019-10-30] MEDS: SENNA/DOCUSATE TABLET PO SCH (09:00)
[2019-10-30 10:16] VITALS: BP 107/76
[2019-10-30] MEDS: ASPIRIN 81 MG TABLET EC PO SCH (10:19)
[2019-10-30] MEDS: SPIRONOLACTONE 25 MG TABLET PO SCH (10:19)
[2019-10-30] MEDS: LACTOBACILLUS CHEW TABLET PO SCH ×3 (10:19→22:12)
[2019-10-30] MEDS: PANTOPRAZOLE 40MG TABLET PO SCH (10:19)
[2019-10-30] MEDS: HEPARIN 5,000 UNITS/ML, 1ML SQ SCH ×2 (10:19→16:28)
[2019-10-30] MEDS: RISPERIDONE 1 MG TAB.RAPDIS PO SCH ×2 (10:19→22:12)
[2019-10-30] MEDS: GABAPENTIN 300 MG CAPSULE PO SCH ×2 (10:19→22:13)
[2019-10-30] MEDS: CARVEDILOL 12.5 MG TABLET PO SCH ×2 (10:19→21:00)
[2019-10-30] MEDS: FERROUS SULFATE 325 MG TABLET PO SCH (10:19)
[2019-10-30] MEDS: LISINOPRIL 5 MG TABLET PO SCH (10:20)
[2019-10-30 13:35] VITALS: BP 91/60
[2019-10-30] MEDS: ACETAMINOPHEN 325 MG TABLET PO PRN (13:42)
[2019-10-30 19:30] VITALS: BP 95/62
[2019-10-30] MEDS: ATORVASTATIN 40 MG TABLET PO SCH (22:13)
[2019-10-30] MEDS: D5%-0.9% NACL 1,000 ML IV SCH (23:04)
[2019-10-31] VITALS (9 sets, daily range): BP systolic 73–122; BP diastolic 54–82
[2019-10-31] MEDS: HEPARIN 5,000 UNITS/ML, 1ML SQ SCH ×3 (01:56→16:20)
[2019-10-31 06:21] LABS: CHLORIDE 100 mmol/L (98-107)
[2019-10-31 06:29] LABS: ALANINE AMINOTRANSFERASE 36 U/L (12-78); ALBUMIN 2.4 g/dL (3.4-5.0); ALKALINE PHOSPHATASE 67 U/L (45-117); ANION GAP 7 mmol/L (5-15); BILIRUBIN,TOTAL 0.6 mg/dL (0.2-1.0); CALCIUM 8.2 mg/dL (8.5-10.1); CREATININE 1.82 mg/dL (0.55-1.02); TOTAL PROTEIN 6.6 g/dL (6.4-8.2)
[2019-10-31 07:01] LABS: MEAN CORPUSCULAR HEMOGLOBIN 22.4 pg (27.0-34.8); MEAN CORPUSCULAR HGB CONC 30.5 g/dL (32.4-35.8); MEAN PLATELET VOLUME 12.5 fL (7.4-10.4); PLATELET COUNT 132 x10^3/uL (130-400); RED BLOOD COUNT 6.31 x10^6/uL (3.82-5.3); RED CELL DISTRIBUTION WIDTH 16.5 % (9.6-15.2)
[2019-10-31 07:02] LABS: MD YES
[2019-10-31 07:20] LABS: ANISOCYTOSIS 1+; HYPOCHROMIA 1+; LYMPH#(MANUAL) 0.86 x10^3/uL (1-3.4); LYMPHS% (MANUAL) 13 % (22-44); MICROCYTOSIS 1+; MONOS% (MANUAL) 3 % (2-9); SEG#(MANUAL) 5.54 x10^3/uL (1.8-6.8); SEGS% (MANUAL) 84 % (42-75)
[2019-10-31 07:21] LABS: <PLATELET ESTIMATE> ADEQUATE; LARGE PLATELETS 1+; TARGET CELLS 1+
[2019-10-31] MEDS: PANTOPRAZOLE 40MG TABLET PO SCH (07:45)
[2019-10-31] MEDS: ASPIRIN 81 MG TABLET EC PO SCH (07:45)
[2019-10-31] MEDS: GABAPENTIN 300 MG CAPSULE PO SCH ×2 (07:45→21:04)
[2019-10-31] MEDS: LACTOBACILLUS CHEW TABLET PO SCH ×3 (07:45→21:04)
[2019-10-31] MEDS: LISINOPRIL 5 MG TABLET PO SCH (07:46)
[2019-10-31] MEDS: SENNA/DOCUSATE TABLET PO SCH (07:46)
[2019-10-31] MEDS: CARVEDILOL 12.5 MG TABLET PO SCH ×2 (07:46→21:00)
[2019-10-31] MEDS: D5%-0.9% NACL 1,000 ML IV SCH ×2 (07:54→19:30)
[2019-10-31] MEDS: RISPERIDONE 1 MG TAB.RAPDIS PO SCH ×2 (07:54→21:05)
[2019-10-31] MEDS: SPIRONOLACTONE 25 MG TABLET PO SCH (07:54)
[2019-10-31] MEDS: ACETAMINOPHEN 325 MG TABLET PO PRN (11:01)
[2019-10-31] MEDS: OXYcodone/APAP 10/325MG TABLET PO PRN (11:18)
[2019-10-31] MEDS ORDERED: SODIUM CHLORIDE 0.9% 1,000 ML IV SCH (13:00)
[2019-10-31] MEDS: AZITHROMYCIN 500 MG in SODIUM CHLORIDE 0.9% 250 ML IV SCH (14:08)
[2019-10-31] MEDS: CEFTRIAXONE PMX 1GM/50ML 50 ML IV SCH (14:08)
[2019-10-31] MEDS: ATORVASTATIN 40 MG TABLET PO SCH (21:04)
[2019-11-01] MEDS: HEPARIN 5,000 UNITS/ML, 1ML SQ SCH ×3 (00:30→15:40)
[2019-11-01 01:16] VITALS: BP 91/71
[2019-11-01] MEDS: CEFTRIAXONE PMX 1GM/50ML 50 ML IV SCH ×2 (01:28→13:27)
[2019-11-01 06:35] VITALS: BP 101/69
[2019-11-01] MEDS: GABAPENTIN 300 MG CAPSULE PO SCH ×2 (08:38→21:11)
[2019-11-01] MEDS: LACTOBACILLUS CHEW TABLET PO SCH ×3 (08:39→21:11)
[2019-11-01] MEDS: PANTOPRAZOLE 40MG TABLET PO SCH (08:39)
[2019-11-01] MEDS: CARVEDILOL 12.5 MG TABLET PO SCH ×2 (08:39→21:11)
[2019-11-01] MEDS: SPIRONOLACTONE 25 MG TABLET PO SCH (08:39)
[2019-11-01] MEDS: ASPIRIN 81 MG TABLET EC PO SCH (08:39)
[2019-11-01] MEDS: FERROUS SULFATE 325 MG TABLET PO SCH (08:39)
[2019-11-01] MEDS: RISPERIDONE 1 MG TAB.RAPDIS PO SCH ×2 (08:39→21:11)
[2019-11-01] MEDS: LISINOPRIL 5 MG TABLET PO SCH (08:40)
[2019-11-01] MEDS: SENNA/DOCUSATE TABLET PO SCH (09:00)
[2019-11-01] MEDS: D5%-0.9% NACL 1,000 ML IV SCH (10:36)
[2019-11-01 12:08] VITALS: BP 101/63
[2019-11-01] MEDS: AZITHROMYCIN 500 MG in SODIUM CHLORIDE 0.9% 250 ML IV SCH (13:27)
[2019-11-01 16:08] LABS: ALANINE AMINOTRANSFERASE 31 U/L (12-78); ALBUMIN 2.2 g/dL (3.4-5.0); ANION GAP 6 mmol/L (5-15); CALCIUM 7.8 mg/dL (8.5-10.1); CHLORIDE 105 mmol/L (98-107); CREATININE 1.36 mg/dL (0.55-1.02)
[2019-11-01 16:11] LABS: ALKALINE PHOSPHATASE 69 U/L (45-117); BILIRUBIN,TOTAL 0.4 mg/dL (0.2-1.0); TOTAL PROTEIN 6.3 g/dL (6.4-8.2)
[2019-11-01] MEDS ORDERED: SODIUM POLYSTYRENE SULFONATE ORAL SUSP PO ONE (18:00)
[2019-11-01] MEDS ORDERED: SODIUM PHOSPHATE 20 MMOL in SODIUM CHLORIDE 0.9% 500 ML IV ONE (18:00)
[2019-11-01 18:33] VITALS: BP 102/69
[2019-11-01] MEDS: ATORVASTATIN 40 MG TABLET PO SCH (21:10)
[2019-11-02] MEDS: HEPARIN 5,000 UNITS/ML, 1ML SQ SCH ×3 (02:03→16:49)
[2019-11-02] MEDS: CEFTRIAXONE PMX 1GM/50ML 50 ML IV SCH ×2 (02:03→13:38)
[2019-11-02 03:48] VITALS: BP 107/68
[2019-11-02] MEDS: OXYcodone/APAP 10/325MG TABLET PO PRN (06:05)
[2019-11-02 08:24] LABS: ALANINE AMINOTRANSFERASE 30 U/L (12-78); ALBUMIN 2.2 g/dL (3.4-5.0); ANION GAP 6 mmol/L (5-15); CHLORIDE 104 mmol/L (98-107); CREATININE 1.27 mg/dL (0.55-1.02)
[2019-11-02 08:26] LABS: ALKALINE PHOSPHATASE 69 U/L (45-117); BILIRUBIN,TOTAL 0.5 mg/dL (0.2-1.0); TOTAL PROTEIN 6.4 g/dL (6.4-8.2)
[2019-11-02 08:46] LABS: BASOPHILS % (AUTO) 0 % (0-1); EOSINOPHILS # (AUTO) 0.02 x10^3/uL (0-0.4); EOSINOPHILS % (AUTO) 0 % (1-7); LYMPHOCYTES % (AUTO) 16 % (22-44); MD SCAN; MEAN CORPUSCULAR HEMOGLOBIN 22.2 pg (27.0-34.8); MEAN CORPUSCULAR HGB CONC 30.3 g/dL (32.4-35.8); MEAN PLATELET VOLUME 11.6 fL (7.4-10.4); MONOCYTES # (AUTO) 0.56 x10^3/uL (0.2-0.8); MONOCYTES % (AUTO) 7 % (2-9); NEUTROPHILS # (AUTO) 5.72 x10^3/uL (1.8-6.8); NEUTROPHILS % (AUTO) 76 % (42-75); PLATELET COUNT 182 x10^3/uL (130-400); RED BLOOD COUNT 6.03 x10^6/uL (3.82-5.3); RED CELL DISTRIBUTION WIDTH 15.9 % (9.6-15.2)
[2019-11-02] MEDS: SENNA/DOCUSATE TABLET PO SCH (09:00)
[2019-11-02] MEDS: RISPERIDONE 1 MG TAB.RAPDIS PO SCH ×2 (09:22→20:08)
[2019-11-02] MEDS: CARVEDILOL 12.5 MG TABLET PO SCH ×2 (09:22→20:08)
[2019-11-02] MEDS: LACTOBACILLUS CHEW TABLET PO SCH ×3 (09:22→20:08)
[2019-11-02] MEDS: PANTOPRAZOLE 40MG TABLET PO SCH (09:22)
[2019-11-02] MEDS: GABAPENTIN 300 MG CAPSULE PO SCH ×2 (09:22→20:08)
[2019-11-02] MEDS: ASPIRIN 81 MG TABLET EC PO SCH (09:22)
[2019-11-02 09:34] VITALS: BP 108/67
[2019-11-02] MEDS: AZITHROMYCIN 500 MG in SODIUM CHLORIDE 0.9% 250 ML IV SCH (12:36)
[2019-11-02 19:33] VITALS: BP 123/84
[2019-11-02] MEDS: ATORVASTATIN 40 MG TABLET PO SCH (20:08)
[2019-11-02 23:10] VITALS: BP 85/57
[2019-11-02 23:52] LABS: MICROSCOPIC INDICATED
[2019-11-03] MEDS: GUAIFENESIN/DM 200-20MG, 10ML UDC PO PRN ×2 (00:19→21:10)
[2019-11-03] MEDS: CEFTRIAXONE PMX 1GM/50ML 50 ML IV SCH ×2 (00:19→12:56)
[2019-11-03] MEDS: HEPARIN 5,000 UNITS/ML, 1ML SQ SCH ×3 (00:19→17:45)
[2019-11-03 00:33] VITALS: BP 93/63
[2019-11-03 05:10] LABS: ALANINE AMINOTRANSFERASE 35 U/L (12-78); ALBUMIN 2.1 g/dL (3.4-5.0); ANION GAP 7 mmol/L (5-15); CALCIUM 8.3 mg/dL (8.5-10.1); CHLORIDE 104 mmol/L (98-107); CREATININE 1.13 mg/dL (0.55-1.02)
[2019-11-03 05:12] LABS: ALKALINE PHOSPHATASE 69 U/L (45-117); BILIRUBIN,TOTAL 0.6 mg/dL (0.2-1.0); TOTAL PROTEIN 6.4 g/dL (6.4-8.2)
[2019-11-03 07:01] VITALS: BP 93/60
[2019-11-03] MEDS: SENNA/DOCUSATE TABLET PO SCH (08:03)
[2019-11-03] MEDS: CARVEDILOL 12.5 MG TABLET PO SCH ×2 (08:11→21:11)
[2019-11-03] MEDS: FERROUS SULFATE 325 MG TABLET PO SCH (08:11)
[2019-11-03] MEDS: GABAPENTIN 300 MG CAPSULE PO SCH ×2 (08:12→21:11)
[2019-11-03] MEDS: PANTOPRAZOLE 40MG TABLET PO SCH (08:12)
[2019-11-03] MEDS: LACTOBACILLUS CHEW TABLET PO SCH ×3 (08:12→21:10)
[2019-11-03] MEDS: ASPIRIN 81 MG TABLET EC PO SCH (08:12)
[2019-11-03] MEDS: RISPERIDONE 1 MG TAB.RAPDIS PO SCH ×2 (08:12→21:11)
[2019-11-03 12:13] VITALS: BP 83/59
[2019-11-03] MEDS: ACETAMINOPHEN 325 MG TABLET PO PRN (12:56)
[2019-11-03] MEDS: AZITHROMYCIN 500 MG in SODIUM CHLORIDE 0.9% 250 ML IV SCH (12:57)
[2019-11-03] MEDS: ASCORBIC ACID 500 MG TABLET PO SCH (17:49)
[2019-11-03 19:30] VITALS: BP 117/81
[2019-11-03] MEDS: THIAMINE 100MG TABLET PO SCH (21:10)
[2019-11-03] MEDS: ATORVASTATIN 40 MG TABLET PO SCH (21:10)
[2019-11-03] MEDS: OXYcodone/APAP 10/325MG TABLET PO PRN (21:14)
[2019-11-04 01:18] VITALS: BP 100/65
[2019-11-04] MEDS: HEPARIN 5,000 UNITS/ML, 1ML SQ SCH ×3 (01:45→16:22)
[2019-11-04] MEDS: CEFTRIAXONE PMX 1GM/50ML 50 ML IV SCH ×2 (01:45→12:31)
[2019-11-04] MEDS: PANTOPRAZOLE 40MG TABLET PO SCH (06:18)
[2019-11-04 08:12] VITALS: BP 101/67
[2019-11-04] MEDS: SENNA/DOCUSATE TABLET PO SCH (09:00)
[2019-11-04] MEDS: CHOLECALCIFEROL 5,000u TAB PO SCH (09:02)
[2019-11-04] MEDS: RISPERIDONE 1 MG TAB.RAPDIS PO SCH ×2 (09:02→20:25)
[2019-11-04] MEDS: CARVEDILOL 12.5 MG TABLET PO SCH ×2 (09:02→20:25)
[2019-11-04] MEDS: ASCORBIC ACID 500 MG TABLET PO SCH ×2 (09:02→16:22)
[2019-11-04] MEDS: THIAMINE 100MG TABLET PO SCH ×2 (09:03→20:24)
[2019-11-04] MEDS: ZINC SULFATE 220 MG CAPSULE PO SCH (09:03)
[2019-11-04] MEDS: GABAPENTIN 300 MG CAPSULE PO SCH ×2 (09:03→20:25)
[2019-11-04] MEDS: LACTOBACILLUS CHEW TABLET PO SCH ×3 (09:03→20:24)
[2019-11-04] MEDS: ASPIRIN 81 MG TABLET EC PO SCH (09:03)
[2019-11-04] MEDS: AZITHROMYCIN 500 MG in SODIUM CHLORIDE 0.9% 250 ML IV SCH (12:31)
[2019-11-04 13:03] VITALS: BP 93/62
[2019-11-04 19:45] VITALS: BP 103/68
[2019-11-04] MEDS: ATORVASTATIN 40 MG TABLET PO SCH (20:24)
[2019-11-04] MEDS: OXYcodone/APAP 10/325MG TABLET PO PRN (20:26)
[2019-11-05 01:09] VITALS: BP 101/64
[2019-11-05] MEDS: HEPARIN 5,000 UNITS/ML, 1ML SQ SCH ×3 (01:11→16:24)
[2019-11-05] MEDS: GUAIFENESIN/DM 200-20MG, 10ML UDC PO PRN (01:11)
[2019-11-05] MEDS: CEFTRIAXONE PMX 1GM/50ML 50 ML IV SCH ×2 (01:11→12:03)
[2019-11-05 06:31] LABS: ANION GAP 7 mmol/L (5-15); CALCIUM 8.4 mg/dL (8.5-10.1); CHLORIDE 106 mmol/L (98-107)
[2019-11-05 06:36] LABS: ALANINE AMINOTRANSFERASE 38 U/L (12-78); ALKALINE PHOSPHATASE 67 U/L (45-117); BILIRUBIN,TOTAL 0.6 mg/dL (0.2-1.0); CREATININE 1.05 mg/dL (0.55-1.02); TOTAL PROTEIN 6.3 g/dL (6.4-8.2)
[2019-11-05 06:53] LABS: MEAN CORPUSCULAR HEMOGLOBIN 22.3 pg (27.0-34.8); MEAN CORPUSCULAR HGB CONC 30.5 g/dL (32.4-35.8); MEAN PLATELET VOLUME 10.4 fL (7.4-10.4); PLATELET COUNT 250 x10^3/uL (130-400); RED BLOOD COUNT 5.76 x10^6/uL (3.82-5.3); RED CELL DISTRIBUTION WIDTH 16.4 % (9.6-15.2)
[2019-11-05 06:56] LABS: BASOPHILS # (AUTO) 0.03 x10^3/uL (0-0.1); BASOPHILS % (AUTO) 0 % (0-1); EOSINOPHILS # (AUTO) 0.39 x10^3/uL (0-0.4); EOSINOPHILS % (AUTO) 5 % (1-7); LYMPHOCYTES # (AUTO) 1.29 x10^3/uL (1-3.4); LYMPHOCYTES % (AUTO) 17 % (22-44); MD SCAN; MONOCYTES # (AUTO) 0.34 x10^3/uL (0.2-0.8); MONOCYTES % (AUTO) 5 % (2-9); NEUTROPHILS # (AUTO) 5.48 x10^3/uL (1.8-6.8); NEUTROPHILS % (AUTO) 73 % (42-75)
[2019-11-05 07:19] VITALS: BP 93/67
[2019-11-05] MEDS: PANTOPRAZOLE 40MG TABLET PO SCH (08:15)
[2019-11-05] MEDS: FERROUS SULFATE 325 MG TABLET PO SCH (08:15)
[2019-11-05] MEDS: ASPIRIN 81 MG TABLET EC PO SCH (08:15)
[2019-11-05] MEDS: GABAPENTIN 300 MG CAPSULE PO SCH ×2 (08:15→21:03)
[2019-11-05] MEDS: ZINC SULFATE 220 MG CAPSULE PO SCH (08:15)
[2019-11-05] MEDS: CARVEDILOL 12.5 MG TABLET PO SCH ×2 (08:15→21:03)
[2019-11-05] MEDS: LACTOBACILLUS CHEW TABLET PO SCH ×3 (08:15→21:03)
[2019-11-05] MEDS: ASCORBIC ACID 500 MG TABLET PO SCH ×2 (08:15→16:24)
[2019-11-05] MEDS: CHOLECALCIFEROL 5,000u TAB PO SCH (08:16)
[2019-11-05] MEDS: RISPERIDONE 1 MG TAB.RAPDIS PO SCH ×2 (08:16→21:03)
[2019-11-05] MEDS: THIAMINE 100MG TABLET PO SCH ×2 (08:16→21:03)
[2019-11-05] MEDS: SENNA/DOCUSATE TABLET PO SCH (08:16)
[2019-11-05] MEDS: AZITHROMYCIN 500 MG in SODIUM CHLORIDE 0.9% 250 ML IV SCH (12:03)
[2019-11-05 13:50] VITALS: BP 86/63
[2019-11-05 14:53] VITALS: BP 89/61
[2019-11-05] MEDS: OXYcodone/APAP 10/325MG TABLET PO PRN (16:25)
[2019-11-05 19:50] VITALS: BP 111/76
[2019-11-05] MEDS: CHOLECALCIFEROL 400 UNITS TABLET PO SCH (21:03)
[2019-11-05] MEDS: ATORVASTATIN 40 MG TABLET PO SCH (21:03)
[2019-11-06 01:19] VITALS: BP 105/68
[2019-11-06] MEDS: CEFTRIAXONE PMX 1GM/50ML 50 ML IV SCH ×2 (01:38→14:24)
[2019-11-06] MEDS: HEPARIN 5,000 UNITS/ML, 1ML SQ SCH ×2 (01:38→08:54)
[2019-11-06] MEDS: OXYcodone/APAP 10/325MG TABLET PO PRN (04:51)
[2019-11-06 05:32] LABS: MEAN CORPUSCULAR HEMOGLOBIN 21.9 pg (27.0-34.8); MEAN PLATELET VOLUME 9.9 fL (7.4-10.4); PLATELET COUNT 310 x10^3/uL (130-400); RED BLOOD COUNT 5.92 x10^6/uL (3.82-5.3); RED CELL DISTRIBUTION WIDTH 16.1 % (9.6-15.2)
[2019-11-06 05:46] LABS: MEAN CORPUSCULAR HGB CONC 29.9 g/dL (32.4-35.8)
[2019-11-06 05:52] LABS: CHLORIDE 107 mmol/L (98-107)
[2019-11-06 06:00] LABS: ALANINE AMINOTRANSFERASE 40 U/L (12-78); ALBUMIN 2.1 g/dL (3.4-5.0); ALKALINE PHOSPHATASE 70 U/L (45-117); ANION GAP 8 mmol/L (5-15); BILIRUBIN,TOTAL 0.5 mg/dL (0.2-1.0); CALCIUM 8.6 mg/dL (8.5-10.1); CREATININE 1.06 mg/dL (0.55-1.02); TOTAL PROTEIN 6.6 g/dL (6.4-8.2)
[2019-11-06 06:20] LABS: BASOPHILS # (AUTO) 0.03 x10^3/uL (0-0.1); BASOPHILS % (AUTO) 0 % (0-1); EOSINOPHILS # (AUTO) 0.36 x10^3/uL (0-0.4); EOSINOPHILS % (AUTO) 4 % (1-7); LYMPHOCYTES # (AUTO) 1.61 x10^3/uL (1-3.4); LYMPHOCYTES % (AUTO) 19 % (22-44); MD SCAN; MONOCYTES # (AUTO) 0.27 x10^3/uL (0.2-0.8); MONOCYTES % (AUTO) 3 % (2-9); NEUTROPHILS # (AUTO) 6.43 x10^3/uL (1.8-6.8); NEUTROPHILS % (AUTO) 74 % (42-75)
[2019-11-06 07:54] VITALS: BP 94/60
[2019-11-06] MEDS: THIAMINE 100MG TABLET PO SCH ×2 (08:53→20:12)
[2019-11-06] MEDS: ZINC SULFATE 220 MG CAPSULE PO SCH (08:53)
[2019-11-06] MEDS: GABAPENTIN 300 MG CAPSULE PO SCH ×2 (08:53→20:11)
[2019-11-06] MEDS: RISPERIDONE 1 MG TAB.RAPDIS PO SCH ×2 (08:53→20:11)
[2019-11-06] MEDS: SENNA/DOCUSATE TABLET PO SCH (08:53)
[2019-11-06] MEDS: LACTOBACILLUS CHEW TABLET PO SCH ×3 (08:53→20:10)
[2019-11-06] MEDS: CHOLECALCIFEROL 400 UNITS TABLET PO SCH ×2 (08:53→20:11)
[2019-11-06] MEDS: PANTOPRAZOLE 40MG TABLET PO SCH (08:54)
[2019-11-06] MEDS: ASCORBIC ACID 500 MG TABLET PO SCH ×2 (08:54→16:30)
[2019-11-06] MEDS: ASPIRIN 81 MG TABLET EC PO SCH (08:54)
[2019-11-06 08:58] VITALS: BP 106/73
[2019-11-06] MEDS: CARVEDILOL 12.5 MG TABLET PO SCH ×2 (08:59→20:12)
[2019-11-06] MEDS: AZITHROMYCIN 500 MG in SODIUM CHLORIDE 0.9% 250 ML IV SCH (12:59)
[2019-11-06] MEDS ORDERED: HEPARIN 5,000 UNITS/ML, 1ML IV ONE (14:00)
[2019-11-06] MEDS ORDERED: HEPARIN 5,000 UNITS/ML, 1ML IV PRN (14:00)
[2019-11-06 14:26] VITALS: BP 103/71
[2019-11-06] MEDS: HEPARIN 25,000 UNITS/250ML PMX 250 ML IV PRN (16:29)
[2019-11-06 20:02] VITALS: BP 98/71
[2019-11-06] MEDS ORDERED: THIAMINE 50MG TABLET ONE (20:03)
[2019-11-06] MEDS: ATORVASTATIN 40 MG TABLET PO SCH (20:11)
[2019-11-07 00:42] VITALS: BP 96/66
[2019-11-07] MEDS: CEFTRIAXONE PMX 1GM/50ML 50 ML IV SCH ×2 (01:52→14:05)
[2019-11-07 07:39] VITALS: BP 101/69
[2019-11-07 09:11] VITALS: BP 111/77
[2019-11-07] MEDS: THIAMINE 100MG TABLET PO SCH ×2 (09:19→21:48)
[2019-11-07] MEDS: ASPIRIN 81 MG TABLET EC PO SCH (09:19)
[2019-11-07] MEDS: LACTOBACILLUS CHEW TABLET PO SCH ×3 (09:19→21:47)
[2019-11-07] MEDS: PANTOPRAZOLE 40MG TABLET PO SCH (09:19)
[2019-11-07] MEDS: ZINC SULFATE 220 MG CAPSULE PO SCH (09:19)
[2019-11-07] MEDS: RISPERIDONE 1 MG TAB.RAPDIS PO SCH ×2 (09:19→21:47)
[2019-11-07] MEDS: FERROUS SULFATE 325 MG TABLET PO SCH (09:19)
[2019-11-07] MEDS: GABAPENTIN 300 MG CAPSULE PO SCH ×2 (09:19→21:47)
[2019-11-07] MEDS: CHOLECALCIFEROL 400 UNITS TABLET PO SCH ×2 (09:19→21:47)
[2019-11-07] MEDS: ASCORBIC ACID 500 MG TABLET PO SCH ×2 (09:19→16:17)
[2019-11-07] MEDS: SENNA/DOCUSATE TABLET PO SCH (09:19)
[2019-11-07] MEDS: CARVEDILOL 12.5 MG TABLET PO SCH ×2 (09:19→21:47)
[2019-11-07] MEDS: AZITHROMYCIN 500 MG in SODIUM CHLORIDE 0.9% 250 ML IV SCH (14:58)
[2019-11-07] MEDS: LACTATED RINGERS 1,000 ML IV SCH (16:16)
[2019-11-07] MEDS: HEPARIN 25,000 UNITS/250ML PMX 250 ML IV PRN (16:24)
[2019-11-07 19:04] VITALS: BP 132/92
[2019-11-07] MEDS ORDERED: OMNIPAQUE 350 MG/ML, 100ML BOTTLE ONE (21:31)
[2019-11-07] MEDS: ATORVASTATIN 40 MG TABLET PO SCH (21:47)
[2019-11-07] MEDS: OXYcodone/APAP 10/325MG TABLET PO PRN (22:32)
[2019-11-08 00:28] VITALS: BP 98/65
[2019-11-08] MEDS: CEFTRIAXONE PMX 1GM/50ML 50 ML IV SCH (01:42)
[2019-11-08] MEDS: LACTATED RINGERS 1,000 ML IV SCH (01:42)
[2019-11-08 05:50] LABS: CALCIUM 8.8 mg/dL (8.5-10.1); CHLORIDE 109 mmol/L (98-107)
[2019-11-08 05:54] LABS: ALANINE AMINOTRANSFERASE 37 U/L (12-78); ALKALINE PHOSPHATASE 63 U/L (45-117); ANION GAP 5 mmol/L (5-15); BILIRUBIN,TOTAL 0.4 mg/dL (0.2-1.0); CREATININE 0.93 mg/dL (0.55-1.02); TOTAL PROTEIN 6.3 g/dL (6.4-8.2)
[2019-11-08 07:15] VITALS: BP 127/91
[2019-11-08] MEDS: THIAMINE 100MG TABLET PO SCH (09:00)
[2019-11-08] MEDS: GABAPENTIN 300 MG CAPSULE PO SCH (09:00)
[2019-11-08] MEDS: CARVEDILOL 12.5 MG TABLET PO SCH (09:00)
[2019-11-08] MEDS: ZINC SULFATE 220 MG CAPSULE PO SCH (09:00)
[2019-11-08] MEDS: SENNA/DOCUSATE TABLET PO SCH (09:00)
[2019-11-08] MEDS: CHOLECALCIFEROL 400 UNITS TABLET PO SCH (09:01)
[2019-11-08] MEDS: ASCORBIC ACID 500 MG TABLET PO SCH (09:01)
[2019-11-08] MEDS: RISPERIDONE 1 MG TAB.RAPDIS PO SCH (09:01)
[2019-11-08] MEDS: PANTOPRAZOLE 40MG TABLET PO SCH (09:01)
[2019-11-08] MEDS: LACTOBACILLUS CHEW TABLET PO SCH (09:01)
[2019-11-08] MEDS: ASPIRIN 81 MG TABLET EC PO SCH (09:01)
[2019-11-08] MEDS ORDERED: ENOXAPARIN 40 MG/0.4 ML SQ SCH (10:00)
[2019-11-08] MEDS ORDERED: ENOXAPARIN 100 MG/ML SQ SCH (10:00)
[2019-11-08] MEDS ORDERED: Enoxaparin 1 mg/kg protocol SQ SCH (10:00)
[2019-11-08] MEDS ORDERED: CEFD300C37 PO (11:40)
[2019-11-08] MEDS ORDERED: ZINC220C7 PO (11:40)
[2019-11-08] MEDS ORDERED: ASCO500T9 PO (11:40)
[2019-11-08] MEDS ORDERED: RIVA10TA2 PO (11:40)
[2019-11-08] MEDS ORDERED: CHOL400T2 PO (11:40)
[2019-11-08] MEDS ORDERED: GUAI-103 PO (11:40)
[2019-11-08] MEDS ORDERED: AZIT500T10 PO (11:40)
[2019-11-08] MEDS ORDERED: THIA100T67 PO (11:40)
[2019-11-08] MEDS: OXYcodone/APAP 10/325MG TABLET PO PRN (14:14)
== END 2019-11-08 18:36 | disposition home or self-care (01) | DRG 177 ==
LOC: ED 05:00 → EDIP 05:45 → 4WST 07:04 → 4EST 10:41
PROVIDERS: ADMIT Family Medicine; ATTEND Internal Medicine
PROC: 06HY33Z Insertion of Infusion Device into Lower Vein, Percutaneous Approach (ICD-10-PCS; principal; 2019-10-30)
PROC: B54BZZA Ultrasonography of Right Lower Extremity Veins, Guidance (ICD-10-PCS; 2019-10-30)
DX: U07.1 COVID-19 (principal); G93.41 Metabolic encephalopathy; J12.89 Other viral pneumonia; N17.0 Acute kidney failure with tubular necrosis; E46 Unspecified protein-calorie malnutrition; E87.1 Hypo-osmolality and hyponatremia; I13.0 Hypertensive heart and chronic kidney disease with heart failure and stage 1 through stage 4 chronic kidney disease, or unspecified chronic kidney disease; R78.81 Bacteremia; Z68.43 Body mass index [BMI] 50.0-59.9, adult; D69.6 Thrombocytopenia, unspecified; E11.22 Type 2 diabetes mellitus with diabetic chronic kidney disease; E11.649 Type 2 diabetes mellitus with hypoglycemia without coma; E11.65 Type 2 diabetes mellitus with hyperglycemia; E66.01 Morbid (severe) obesity due to excess calories; E83.39 Other disorders of phosphorus metabolism; E87.5 Hyperkalemia; F31.9 Bipolar disorder, unspecified; F41.1 Generalized anxiety disorder; I25.2 Old myocardial infarction; I50.9 Heart failure, unspecified; J45.909 Unspecified asthma, uncomplicated; M06.9 Rheumatoid arthritis, unspecified; M79.7 Fibromyalgia; N18.9 Chronic kidney disease, unspecified; T50.0X5A Adverse effect of mineralocorticoids and their antagonists, initial encounter; Z86.73 Personal history of transient ischemic attack (TIA), and cerebral infarction without residual deficits; Z79.82 Long term (current) use of aspirin; Z88.0 Allergy status to penicillin
CPT/HCPCS: 36415; 36556; 99291; J7042; 71045; 71275; 78580; 80053; 81001; 82962; 83036; 83690; 83735; 83880; 84100; 84484; 85025; 85379; 85520; 87040; 87086; 87635; 93005; G0378; J0456; J0696; J1644; J1650; J2405; Q9967; A9540; J7030; J7040; J7050; J7120; Q0177

== ENCOUNTER → 2020-02-10 | Outpatient (CLI) | payer MEDICAID ==
[~2020-02-10] MED LIST changes: +ASCO500T9 PO; +AZIT500T10 PO; +CARV12.52 PO; +CEFD300C37 PO; +CHOL400T2 PO; +GABA-826 PO; +GLYB5TAB3 PO; +GUAI-103 PO; +HYDR-826 PO; +RIVA10TA2 PO; +SPIR25TA5 PO; +THIA100T67 PO; +ZINC220C7 PO
== END | disposition home or self-care (01) ==
LOC: RAD 14:53
PROVIDERS: ATTEND Internal Medicine Nephrology
DX: I12.9 Hypertensive chronic kidney disease with stage 1 through stage 4 chronic kidney disease, or unspecified chronic kidney disease (principal); N18.32 Chronic kidney disease, stage 3b; E11.22 Type 2 diabetes mellitus with diabetic chronic kidney disease
CPT/HCPCS: 76770